=== PATIENT | female | born 1990 | race African-American/Black ===

== ENCOUNTER 2020-10-10 15:11 | Emergency (ER) | payer OTHER ==
[~2020-10-10] VITALS: Ht 162.6 cm; Wt 59.1 kg
[2020-10-10 15:31] VITALS: BP 126/66
[2020-10-10] MEDS ORDERED: ACETAMINOPHEN 325 MG TABLET PO ONE (16:15)
[2020-10-10] MEDS ORDERED: IBUPROFEN 400 MG TABLET PO ONE (16:15)
[2020-10-10 16:51] LABS: COVID AG,FIA SOURCE NASOPHARYNGEAL
== END 2020-10-10 16:46 | disposition home or self-care (01) ==
LOC: EMS 15:21
DX: U07.1 COVID-19 (principal); R50.9 Fever, unspecified; R51.9 Headache, unspecified
CPT/HCPCS: 87426; 99283; C9803; U0003

== ENCOUNTER 2021-09-15 00:13 | Emergency (ER) | payer OTHER ==
[~2021-09-15] VITALS: Ht 162.6 cm; Wt 63.6 kg
[2021-09-15] MEDS ORDERED: SODIUM CHLORIDE 0.9% 250 ML IRRIG SOLUTION BOTTLE IRRIG ONE (01:00)
[2021-09-15] MEDS ORDERED: PERTUSS(ACELL),DIPH,TET VAC/PF 0.5 ML SYRINGE IM. ONE (01:00)
[2021-09-15] MEDS ORDERED: LIDOCAINE 1% 10 ML VIAL ID ONE (01:00)
[2021-09-15 02:15] VITALS: BP 119/65
== END 2021-09-15 02:18 | disposition home or self-care (01) ==
LOC: EMS 00:16
DX: S01.81XA Laceration without foreign body of other part of head, initial encounter (principal); W19.XXXA Unspecified fall, initial encounter; Y93.89 Activity, other specified; Y92.89 Other specified places as the place of occurrence of the external cause; Y99.8 Other external cause status
CPT/HCPCS: 99283; 90715; 90471; 12013; J3490

== ENCOUNTER 2021-09-21 09:15 | Emergency (ER) | payer OTHER ==
[~2021-09-21] VITALS: Ht 162.6 cm; Wt 65.9 kg
[2021-09-21] MEDS ORDERED: ERYT3.5O8 OS (10:34)
[2021-09-21 10:39] VITALS: BP 112/76
== END 2021-09-21 10:42 | disposition home or self-care (01) ==
LOC: EMS 09:15
DX: S01.81XD Laceration without foreign body of other part of head, subsequent encounter (principal); H10.9 Unspecified conjunctivitis; Z48.02 Encounter for removal of sutures; W01.0XXD Fall on same level from slipping, tripping and stumbling without subsequent striking against object, subsequent encounter
CPT/HCPCS: 99283; Z7502